=== PATIENT | female | born 1975 | race Caucasian/White ===

== ENCOUNTER → 2023-08-02 18:37 | Outpatient (REF) | payer BC, SELFPAY | LOC: MRI 3T 18:37 | PROVIDERS: ATTENDING PHYSICIAN Obstetrics & Gynecology; FAMILY PHYSICIAN Family Medicine | DX: N90.7 Vulvar cyst (principal); N75.0 Cyst of Bartholin's gland; N36.8 Other specified disorders of urethra | CPT/HCPCS: 72197; A9575 ==

== ENCOUNTER 2023-09-06 08:08 | Day surgery (SDC) | payer BC, SELFPAY ==
[2023-08-30 09:00] LABS: Hematocrit 35.8 % (37.0-47.0); Hemoglobin 12.4 g/dL (12.0-16.0); Mean Corp Hgb Conc. 34.6 g/dL (33.0-37.0); Mean Corpuscular Hgb 29.5 pg (27.0-31.0); Mean Corpuscular Volume 85.2 fL (81.0-99.0); Mean Platelet Volume 9.7 fL (7.4-10.4); Platelet Count 315 10^3/uL (130-400)
[2023-08-30 09:36] LABS: Blood Urea Nitrogen 8 mg/dl (7-17); Calcium 9.3 mg/dl (8.4-10.2); Carbon Dioxide 24 mmol/L (22-30); Chloride 104 mmol/L (98-107); Glucose 80 mg/dl (70-99); Sodium 138 mmol/L (135-145); eGFR > 60.00
[2023-08-30 14:04] VITALS: BMI 27.9
[2023-09-06] VITALS (17 sets, daily range): BP systolic 0–123; BP diastolic 38–73; BMI 27.9
[2023-09-06] MEDS: NORMOSOL-R 1000 IV ×3 (09:02→19:45)
[2023-09-06] MEDS: Pyridium 200 MG PO (09:05)
[2023-09-06 13:23] LABS: Hematocrit 33.3 % (37.0-47.0); Hemoglobin 11.7 g/dL (12.0-16.0)
[2023-09-06] MEDS: TORADOL 15 MG IV ×2 (14:21→19:44)
--- NOTE | 2023-09-06 15:40 | PTCARENOTE ---
Pt arrived to [facility] from PACU s/p excision of labial cyst. Dupree in place draining yellow/orange urine. Camila drain in place and peripad in place with scant amount of pink tinged blood. IVF infusing. Pt states no pain at this time. Pt oriented
to call green and room, bed locked and in lowest position, call green within reach.
[2023-09-06] MEDS: COLACE 100 MG PO (19:44)
[2023-09-06] MEDS: ROXICODONE 2.5 MG PO (20:37)
[2023-09-06] MEDS: ZOFRAN 4 MG IV (20:39)
[2023-09-06] MEDS: ROXICODONE 5 MG PO (22:56)
[2023-09-07] MEDS: TORADOL IV ×2 (01:30→09:00)
[2023-09-07 03:36] VITALS: BP 99/50
[2023-09-07] MEDS: ROXICODONE 5 MG PO ×4 (03:56→21:55)
[2023-09-07] MEDS: NORMOSOL-R 1000 IV ×2 (04:00→12:30)
[2023-09-07] MEDS: SYNTHROID 150 MCG PO (05:40)
[2023-09-07 06:58] VITALS: BP 87/52
--- NOTE | 2023-09-07 07:34 | W.PN.GYN ---
Today's Communication / Plan
-
1. obtain bloodwork
2. d/c home later today
3. peribottle for wound irrigation
Physician Note
-
Assessment and Plan:
48 yo woman POD 1 s/p excision of right labial cyst and drain placement: patient stable overnight and meeting postop milestones. She had some bleeding from her drain this morning approximatly 50cc however denies additional acute bleeding.
1. Postoperative care
-hep lock iv
-dvt ppx: scds and ambulation
-cbc: pending
-bmp: pending
-uop: adequate
-drain output: 50cc
-continue pad counts
-continue ice packs for compression
-peribottle for wound irrigation
-diet: regular
2. dispo
-consider d/c home later today
Subjective
-discomfort from vulva, had bleeding with void this morning, denies fevers/chills, nausea/vomiting, chest pain, sob.
Objective:
Intake and Output
09/05/23 09/06/23 09/07/23 09/08/23
06:59 06:59 06:59 06:59
Intake Total 3615 / 3615
Output Total 1400 / 1400
Balance 2215 / 2215
Intake:
Oral fluids 1440 / 1440
IV fluids (Total) 2175 / 2175
Normosal 300 / 300
Output:
Drain Output (Total) 50 / 50
[place] 50 / 50
Urine, [place] 1350 / 1350
Vital Signs
Temp Pulse Resp BP Pulse Ox
98.0 F 75 16 99/50 99
09/07/23 03:36 09/07/23 03:36 09/07/23 03:36 09/07/23 03:36 09/07/23 03:36
Exam:
: streaking on pad, incision intact, +bloody drainage from drain site, no hematoma, no ecchymosis, no edema of the vulva
[2023-09-07 08:03] LABS: Hematocrit 26.5 % (37.0-47.0); Hemoglobin 9.3 g/dL (12.0-16.0); Mean Corp Hgb Conc. 35.1 g/dL (33.0-37.0); Mean Corpuscular Hgb 30.9 pg (27.0-31.0); Mean Platelet Volume 9.8 fL (7.4-10.4); Platelet Count 203 10^3/uL (130-400); Red Blood Cell Count 3.01 10^6/uL (4.20-5.40); Red Cell Dist. Width 13.2 % (11.5-14.5); White Blood Cell Count 11.2 10^3/uL (4.8-10.8)
[2023-09-07 08:07] LABS: Blood Urea Nitrogen 8 mg/dl (7-17); Calcium 7.6 mg/dl (8.4-10.2); Carbon Dioxide 26 mmol/L (22-30); Chloride 104 mmol/L (98-107); Estimated Creatinine Clearance 118 ml/min; Glucose 99 mg/dl (70-99); Potassium 3.8 mmol/L (3.5-5.1); Sodium 133 mmol/L (135-145); eGFR > 60.00
[2023-09-07] MEDS: COLACE PO (09:00)
--- NOTE | 2023-09-07 10:03 | CM ---
CM following re: discharge planning.
Reviewed pt's chart, met with pt.
Pt is a 48 year old female, admitted with SDC status and primary dx of POD 1 s/p excision of right labial cyst and drain placement.
Pt reports she lives with and 2 children in a 2[facility], has 4 supportive children. Pt described herself as independent in al areas [employer], drives, works.
Per surgery, pt will be discharged home later today. Pt is aware, expressed her agreement with discharge and she stated her will transport her home. No after care VN services indicated.
PCP: Jeff Verma
Pharmacy: [facility]
D/C plan: home no needs. to transport.
[2023-09-07 10:50] VITALS: BP 95/50
[2023-09-07 14:33] LABS: % Basophils 0.2 % (0-2); % Eosinophils 0.4 % (0-6); % Immature Granulocytes 0.4 % (0-0.5); % Lymphocytes 22.5 % (20.5-51.1); % Monocytes 6.2 % (1.7-9.3); % Neutrophils 70.3 % (42.2-75.2); Absolute Lymphocytes 2.1 10^3/uL (1.2-3.4); Absolute Monocytes 0.6 10^3/uL (0.1-0.6); Absolute Neutrophils 6.4 10^3/uL (1.4-6.5); Hematocrit 24.5 % (37.0-47.0); Hemoglobin 8.5 g/dL (12.0-16.0); Mean Corp Hgb Conc. 34.7 g/dL (33.0-37.0); Mean Corpuscular Volume 86.6 fL (81.0-99.0); Mean Platelet Volume 10.1 fL (7.4-10.4); Nucleated Red Blood Cells % 0 %; Platelet Count 196 10^3/uL (130-400); Red Blood Cell Count 2.83 10^6/uL (4.20-5.40); Red Cell Dist. Width 13.3 % (11.5-14.5); White Blood Cell Count 9.2 10^3/uL (4.8-10.8)
--- NOTE | 2023-09-07 15:18 | W.PN.UPDATE ---
Update Note
Progress Note Update
48 yo woman POD 1 s/p excision of labial cyst
subjective:
patient feels well, pain controlled with oral medications, able to ambulate, light streaking on pad, no clots, no discharge, no bleeding with voids
Exam:
minimal edema of her vulva, drain in place, light spotting, no active vaginal bleeding
vaginal exam: unable to palpate any hematoma in the vaginal wall
Hgg: downtrending postoperatively 11.7 to 9.5 to 8.7
Plan:
-Continue IVF: normosol
-repeat cbc in 6 hours
-obtain CT angio with IV contrast of her pelvis to rule out arterial bleeding
-Discussed with patient indications for blood transfusion, patient is consented for blood transfusion if necessary
-Discussed indications for surgical management versus embolization
-Relayed plan of care to her bedside RN
Lyndon Frazier MD
[2023-09-07 15:37] VITALS: BP 99/55
[2023-09-07] MEDS: COLACE 100 MG PO (20:07)
[2023-09-07 21:58] LABS: % Basophils 0.2 % (0-2); % Eosinophils 1.2 % (0-6); % Immature Granulocytes 0.4 % (0-0.5); % Lymphocytes 29.5 % (20.5-51.1); % Monocytes 6.6 % (1.7-9.3); % Neutrophils 62.1 % (42.2-75.2); Absolute Eosinophils 0.1 10^3/uL (0-0.7); Absolute Lymphocytes 2.5 10^3/uL (1.2-3.4); Absolute Monocytes 0.6 10^3/uL (0.1-0.6); Absolute Neutrophils 5.2 10^3/uL (1.4-6.5); Hematocrit 25.5 % (37.0-47.0); Hemoglobin 8.9 g/dL (12.0-16.0); Mean Corp Hgb Conc. 34.9 g/dL (33.0-37.0); Mean Corpuscular Volume 85.9 fL (81.0-99.0); Mean Platelet Volume 9.6 fL (7.4-10.4); Nucleated Red Blood Cells % 0 %; Platelet Count 197 10^3/uL (130-400); Red Blood Cell Count 2.97 10^6/uL (4.20-5.40); Red Cell Dist. Width 13.5 % (11.5-14.5); White Blood Cell Count 8.4 10^3/uL (4.8-10.8)
--- NOTE | 2023-09-07 22:08 | PTCARENOTE ---
Hemaglobin being monitored as decreased from 09/05 from 11.7, to 09/06 results 9.3, 8.5; @21:53 result 8.9, Dr. Frazier notified and no further orders at this time; next CBC ordered for 09/07 @0600.
[2023-09-07] MEDS: BENADRYL 50 MG PO (22:31)
[2023-09-07 23:20] VITALS: BP 104/57
[2023-09-08] MEDS: SYNTHROID 150 MCG PO (04:56)
[2023-09-08] MEDS: ROXICODONE 2.5 MG PO (06:19)
[2023-09-08 06:46] LABS: % Basophils 0.4 % (0-2); % Eosinophils 1.2 % (0-6); % Immature Granulocytes 0.3 % (0-0.5); % Lymphocytes 33.8 % (20.5-51.1); % Monocytes 6.6 % (1.7-9.3); % Neutrophils 57.7 % (42.2-75.2); Absolute Eosinophils 0.1 10^3/uL (0-0.7); Absolute Lymphocytes 2.5 10^3/uL (1.2-3.4); Absolute Monocytes 0.5 10^3/uL (0.1-0.6); Absolute Neutrophils 4.2 10^3/uL (1.4-6.5); Hematocrit 25.8 % (37.0-47.0); Hemoglobin 8.7 g/dL (12.0-16.0); Mean Corp Hgb Conc. 33.7 g/dL (33.0-37.0); Mean Corpuscular Hgb 29.7 pg (27.0-31.0); Mean Corpuscular Volume 88.1 fL (81.0-99.0); Mean Platelet Volume 10.3 fL (7.4-10.4); Nucleated Red Blood Cells % 0 %; Platelet Count 209 10^3/uL (130-400); Red Blood Cell Count 2.93 10^6/uL (4.20-5.40); Red Cell Dist. Width 13.4 % (11.5-14.5); White Blood Cell Count 7.2 10^3/uL (4.8-10.8)
[2023-09-08 07:02] VITALS: BP 106/56
--- NOTE | 2023-09-08 07:42 | W.PN.GYN ---
Today's Communication / Plan
-
Discharge patient home
Physician Note
-
Assessment and Plan:
48 yo woman POD 2 s/p excision of right labial cyst and drain placement: patient stable overnight and Hgb stablized on POD1, CT did not demonstrate an arterial bleed or large hematoma.
1. Postoperative care
-hep lock iv
-dvt ppx: scds and ambulation
-cbc: stablized overnight
-bmp: WNL
-uop: adequate
-drain output: minimal overnight
-continue pad count
-continue ice packs for compression
-peribottle for wound irrigation
-diet: regular
2. Anemia 2/2 postop bleeding
- Hgb stable
- CT did not demonstrate active bleed or hematoma
- Vitals stable
- Drain in place with output decreasing; plan to remove on Wednesday
- Start Bactrim at time of discharge
- Patient stable for discharge
3. dispo
-d/c home later today
Subjective:
Patient evaluated on AM rounds. She reports continued vulvar burning and tenderness. Reports decreased drain output. Denies weakness, n/v, sob or chest pain.
Objective:
Intake and Output
09/06/23 09/07/23 09/08/23 09/09/23
06:59 06:59 06:59 06:59
Intake Total 3615 / 3615 3790 / 3790
Output Total 1400 / 1400 1200 / 1200
Balance 2215 / 2215 2590 / 2590
Intake:
Oral fluids 1440 / 1440 204 / 204
IV fluids (Total) 2175 / 2175 1750 / 1750
Normosal 300 / 300
Output:
Drain Output (Total) 50 / 50
[place] 50 / 50
Urine, [place] 1350 / 1350
Urine, Voided 1200 / 1200
Other:
Number of approximated MODERATE 1
amounts of urine
Vital Signs
Temp Pulse Resp BP Pulse Ox
98.3 F 70 16 106/56 96
09/08/23 07:02 09/08/23 07:02 09/08/23 07:02 09/08/23 07:02 09/08/23 07:02
Lab Results
09/08/23 04:52
09/07/23 07:34
GA: Well appearing female in NAD
/THREAD TWISTER: pad with minimal dried blood, right vulvar sutures in place, negative edema or erythema. Negative eccyhymosis or hematoma. Camila drain in place with bloody malodorous drainage.
[2023-09-08] MEDS: COLACE 100 MG PO (09:12)
[2023-09-08] MEDS: TYLENOL 650 MG PO (09:13)
[2023-09-08] MEDS: ROXICODONE 5 MG PO (11:41)
[2023-09-08 12:19] VITALS: BP 112/72
== END 2023-09-08 12:42 | disposition home or self-care (01) ==
LOC: SDS 08:08
PROVIDERS: ATTENDING PHYSICIAN Obstetrics & Gynecology
DX: N75.0 Cyst of Bartholin's gland (principal)
CPT/HCPCS: 56740; 88304; 36415; 72191; 80048; 85014; 85018; 85025; 85027; 86850; 86900; 86901; 93005; C1776; J1580; Q9967

== ENCOUNTER 2024-07-14 06:22 | Day surgery (SDC) | payer BC, SELFPAY | END 2024-07-14 12:08 | disposition home or self-care (01) | LOC: GI 06:22 | PROVIDERS: ATTENDING PHYSICIAN Internal Medicine Gastroenterology | DX: Z12.11 Encounter for screening for malignant neoplasm of colon (principal); K64.8 Other hemorrhoids; Q43.8 Other specified congenital malformations of intestine | CPT/HCPCS: G0121 ==